=== PATIENT | male | born 1985 | race Hispanic/Latino ===

== ENCOUNTER 2016-08-25 08:55 | Inpatient (IN) | payer MEDICAID, OTHER ==
[2016-08-25 10:04] LABS: BASO % 0.2 % (0.0-2.0); EOS % 0.3 % (0.0-4.0); HEMATOCRIT 38.8 % (35.0-51.0); LYMPH # 0.6 K/uL (1.0-4.3); LYMPH % 7.8 % (20.0-40.0); MEAN CELL VOLUME 91.9 fL (80.0-94.0); MEAN CORPUSCULAR HEMOGLOBIN 30.5 pg (27.0-31.0); MEAN CORPUSCULAR HGB CONC 33.2 g/dL (33.0-37.0); MEAN PLATELET VOLUME 9.5 fL (7.2-11.7); MONO # 0.4 K/uL (0.0-0.8); PLATELET COUNT 165 K/uL (130-400); RED CELL DISTRIBUTION WIDTH 12.7 % (11.5-14.5); WHITE BLOOD COUNT 7.5 K/uL (4.8-10.8)
[2016-08-25 10:24] LABS: CHLORIDE 100 mmol/L (98-107); SODIUM 140 mmol/L (132-148)
[2016-08-25 10:25] LABS: POTASSIUM 3.6 mmol/L (3.6-5.2)
[2016-08-25 10:27] LABS: ALB/GLOB RATIO 1.2 (1.0-2.1); ALKALINE PHOSPHATASE 113 U/L (38-126); ALT/SGPT 99 U/L (21-72); AST/SGOT 102 U/L (17-59); BILIRUBIN,TOTAL 1.4 mg/dL (0.2-1.3); BLOOD UREA NITROGEN 10 mg/dL (9-20); CALCIUM 8.4 mg/dl (8.6-10.4); CARBON DIOXIDE 27 mmol/L (22-30); GFR AFRICAN-AMERICAN > 60; GLUCOSE,RANDOM 121 mg/dL (75-110); TOTAL PROTEIN 7.2 g/dL (6.3-8.3)
[2016-08-25 10:28] LABS: ALCOHOL SERUM < 10 mg/dl (0-10)
[2016-08-25 10:29] LABS: NEUTROPHIL 86 % (50-75); TOTAL CELLS COUNTED 100
[2016-08-25 10:32] LABS: RBC URINE 4 /hpf (0-3); URINE BACTERIA RARE (<OCC); URINE BILIRUBIN NEGATIVE (NEGATIVE); URINE BLOOD NEGATIVE (NEGATIVE); URINE COLOR Yellow (YELLOW); URINE GLUCOSE (UA) NORMAL (Normal); URINE KETONE NEGATIVE (NEGATIVE); URINE LEUKOCYTE ESTERASE 1+ Leu/uL (Negative); URINE PROTEIN NEGATIVE (NEGATIVE); WBC URINE 23 /hpf (0-5)
--- NOTE | 2016-08-25 11:34 | C.PDOC ---
History Of Present Illness 30 y/o male with history of heroin abuse and alcohol abuse presents to the ED requesting detox. He also reports history of depression and suicidal thoughts in the past but states that today he is just here for detox. Patient also complains of feeling anxious and notes he has not been able to sleep well. Admits to some nausea and vomiting but denies fever, chest pain, suicidal ideation at this time, homicidal ideation, or other complaints. Time Seen by Provider: 08/25/16 09:13 Chief Complaint (Nursing): Substance Abuse History Per: Patient History/Exam Limitations: no limitations Onset/Duration Of Symptoms: Days, Persistent Current Symptoms Are (Timing): Still Present Suicide/Self Injury Attempted (Context): None Modifying Factor(s): Alcohol, Other (heroin) Associated Symptoms: Anxiety, Depression Involuntary Hold By: None Recent travel outside of the [place]: No Past Medical History Reviewed: Historical Data, Nursing Documentation, Vital Signs Vital Signs: Last Vital Signs Temp 97.8 F 08/25/16 12:23 Pulse 68 08/25/16 12:23 Resp 97 H 08/25/16 12:23 BP 136/78 08/25/16 12:23 Pulse Ox 18 L 08/25/16 12:23 - Medical History PMH: Migraine Surgical History: No Surg Hx Family History: States: Unknown Family Hx - Social History Hx Tobacco Use: Yes (heavy smoker) Hx Alcohol Use: Yes Hx Substance Use: Yes - Immunization History Hx Tetanus Toxoid Vaccination: No Hx Influenza Vaccination: No Hx Pneumococcal Vaccination: No Review Of Systems Constitutional: Positive for: Other (requesting detox). Negative for: Fever Cardiovascular: Negative for: Chest Pain Gastrointestinal: Positive for: Nausea, Vomiting Psych: Positive for: Anxiety, Depression. Negative for: Suicidal ideation (or homicidal ideation) Physical Exam - Physical Exam Appears: Non-toxic, Agitated, Other (anxious) Skin: Warm, Dry Head: Atraumatic, Normacephalic Eye(s): bilateral: Normal Inspection, PERRL, EOMI Nose: Normal Oral Mucosa: Moist Neck: Normal ROM, Supple Chest: Symmetrical Cardiovascular: Rhythm Regular Respiratory: Normal Breath Sounds, No Rales, No Rhonchi, No Wheezing Gastrointestinal/Abdominal: Bowel Sounds, Soft, No Tenderness, No Guarding, No Rebound Back: Normal Inspection, No CVA Tenderness Extremity: Normal ROM, No Swelling Neurological/Psych: Oriented x3, Normal Speech Gait: Steady ED Course And Treatment - Laboratory Results Result Diagrams: 08/25/16 09:54 08/25/16 09:54 Lab Interpretation: No Acute Changes O2 Sat by Pulse Oximetry: 98 (room air) Pulse Ox Interpretation: Normal Medical Decision Making Medical Decision Making: Impression: hx of alcohol abuse and heroin abuse, requesting detox. Plan: * Blood Work * Urinalysis * Ativan PO, Zofran PO There are no detox beds available at this time. Patient evaluated by crisis team, recommend admission to psych for bipolar disorder. Patient has been medically cleared, and will be admitted under the care of Dr. Ascencio. Disposition - Disposition Disposition: HOSPITALIZED Disposition Time: 12:00 Condition: FAIR - POA Present On Arrival: None - Clinical Impression Clinical Impression: Drug abuse, Bipolar disorder - PA / LEGAL ENTITY CONTROLLER / Resident Statement MD/DO has reviewed & agrees with the documentation as recorded. - Scribe Statement The provider has reviewed the documentation as recorded by the Scribe (Tran Kent) All medical record entries made by the Scribe were at my direction and personally dictated by me. I have reviewed the chart and agree that the record accurately reflects my personal performance of the history, physical exam, medical decision making, and the department course for this patient. I have also personally directed, reviewed, and agree with the discharge instructions and disposition. Decision To Admit - Pt Status Changed To: Hospital Disposition Of: Inpatient - Admit Certification Admit to Inpatient:: After my assessment, the patient will require hospitalization for at least two midnights. This is because of the severity of symptoms shown, intensity of services needed, and/or the medical risk in this patient being treated as an outpatient. - InPatient: Physician Admission Certification: I certify that this patient requires 2 or more midnights of care for the following reason:: Patient with bipolar disorder and reports suicidal thoughts, also drug abuse - . Bed Request Type: Psychiatry Admitting Physician: Tiffany Ascencio Patient Diagnosis: Drug abuse, Bipolar disorder
[2016-08-25] MEDS ORDERED: guaiFENesin DM 200 mg-20 mg/10 ml UD PO PRN (12:52)
[2016-08-25] MEDS ORDERED: Aluminum Hydroxide/Magnesium Hydroxide Susp (30 mL) PO PRN (12:52)
--- NOTE | 2016-08-25 12:52 | PCM.PSYCH ---
Initial Psychiatric Evaluation - Initial Psychiatric Evaluation Type of Admission: Voluntary Legal Status: Capacity Chief Complaint (in patient's own words): "I'm in withdrawal" History of Present Illness and Precipitating Events: Pt is a 30 yo male, single, lives in a long-term, and is unemployed. Pt came to the hospital stating "I cant handle it anymore" and requesting opioid and alcohol detox. Pt has a history of heroin abuse. Reports using 10 bags per day, IV. Also reports drinking 1.5 pints of liquor per day. Pt's last drink was yesterday. Reports prior detox and rehab one year ago. Pt complaining of withdrawal symptoms including back pain, nausea, vomiting, and diarrhea. Denies shakes and seizure. At the time of exam, pt reports depressed mood, poor sleep, poor appetite and anhidonia. However he denies any homicidal ideation, auditory hallucinations, and visual hallucinations. Psych Hx: Reports previous episodes of depression and suicidal ideation. Family Psych Hx: denies Past Psychiatric History - Past Psychiatric History Previous Treatment History: Inpatient Pertinent Medical Hx (Current Medical&Sleep Prob, Allergies): Allergies Allergy/AdvReac Type Severity Reaction Status Date / Time No Known Allergies Allergy Verified 05/21/13 14:55 No Known Home Med 08/25/16 Review of Systems - Review of Systems All systems: reviewed and no additional remarkable complaints except - Psychiatric Psychiatric: Anxiety, Depression, Irritability, Suicidal Ideation Mental Status Examination - Personal Presentation Personal Presentation: Looks stated age - Affect Affect: Constricted, Depressed - Motor Activity Motor Activity: Calm - Reliability in Providing Information Reliability in Providing Information: Good - Speech Speech: Organized - Mood Mood: Depressed, Anxious - Formal Thought Process Formal Thought Process: No Impairment - Obsessions/Compulsions Obsessions: No Compulsions: No - Cognitive Functions Orientation: Person, Place, Situation, Time Sensorium: Alert Attention/Concentration: Attentive Abstract Thinking: [place] Estimate of Intelligence: Below average Judgement: Imparied, as evidence by: Poor judgement, Imparied, as evidence by: Lack of insight into illness - Risk Risk: Suicidal, Withdrawal, Diminished functioning - Strength & Assets Inventory Strength & Assets Inventory: Cooperative DSM 5 DX - DSM 5 DSM 5 Diagnosis: Major depressive disorder recurrent moderate CBT Psychoeducation Supportive therapy, individual therapy Start Zoloft 50 mg PO daily Start Trazodone 50 mg PO Q HS Opioid use disorder severe CBT Psychoeducation Supportive therapy, individual therapy Use [place] for abstinence Opioid withdrawal CBT Psychoeducation Supportive therapy, individual therapy Clonidine when necessary Methadone taper Alcohol use disorder severe CBT Psychoeducation Supportive therapy, individual therapy Use [place] for abstinence Alcohol withdrawal uncomplicated CBT Psychoeducation Supportive therapy, individual therapy Librium when necessary Start Librium taper Start folic acid/thiamine/multivitamin - Recommended/Plan of Treatment Treatment Recommendations and Plan of Treatment: Major depressive disorder recurrent moderate CBT Psychoeducation Supportive therapy, individual therapy Zoloft 50 mg PO daily Trazodone 50 mg PO Q HS Opioid use disorder severe CBT Psychoeducation Supportive therapy, individual therapy Use [place] for abstinence Opioid withdrawal CBT Psychoeducation Supportive therapy, individual therapy Clonidine when necessary Methadone taper Alcohol use disorder severe CBT Psychoeducation Supportive therapy, individual therapy Use CO for abstinence Alcohol withdrawal uncomplicated CBT Psychoeducation Supportive therapy, individual therapy Ativan when necessary Ativan taper Folic acid/thiamine/multivitamin
[2016-08-25] MEDS: Multiple Vitamins Tab PO SCH (15:14)
[2016-08-26] MEDS: Multiple Vitamins Tab PO SCH (10:09)
--- NOTE | 2016-08-26 16:58 | PCM.PYCHPN ---
Psychiatric Progress Note - Psychiatric Progress Note Patient seen today, length of contact: 16 minutes Patient Chief Complaint: "This akathisia is driving me nuts" Problems Identified/Issues Discussed: Pt was seen, chart reviewed and case discussed with staff. Pt is compliant with medication. Noted to be withdrawn in his room since admission. Pt complaining of continued poor sleep, bodyaches, decreased appetite and restlessness. Denies suicidal ideation, homicidal ideation, and hallucinations. Pt slightly improved from yesterday. Psychoeducation and support given. Medication Change: Yes (Methadone) Medical Record Reviewed: Yes Mental Status Examination - Cognitive Function Orientation: Person, Place, Situation, Time - Mood Mood: Depressed, Anxious - Affect Affect: Constricted, Depressed - Formal Thought Process Formal Thought Process: No Impairment - Suicidal Ideation Suicidal Ideation: No - Homicidal Ideation Homicidal Ideation: No Goal/Treatment Plan - Goal/Treatment Plan Need for Continued Stay: Remain at risks for inpatient hospitalization, Discharge may exacerbated symptoms, Severe functional impairment Progress Toward Problem(s) and Goals/Treatment Plan: Major depressive disorder recurrent moderate CBT Psychoeducation Supportive therapy, individual therapy Zoloft 50 mg PO daily Trazodone 50 mg PO Q HS Opioid use disorder severe CBT Psychoeducation Supportive therapy, individual therapy Use [place] for abstinence Opioid withdrawal CBT Psychoeducation Supportive therapy, individual therapy Clonidine when necessary Methadone taper Alcohol use disorder severe CBT Psychoeducation Supportive therapy, individual therapy Use [place] for abstinence Alcohol withdrawal uncomplicated CBT Psychoeducation Supportive therapy, individual therapy Ativan when necessary Ativan taper Folic acid/thiamine/multivitamin
[2016-08-27] MEDS: Multiple Vitamins Tab PO SCH (10:37)
--- NOTE | 2016-08-27 16:26 | PCM.PYCHPN ---
Psychiatric Progress Note - Psychiatric Progress Note Patient seen today, length of contact: 20 min Patient Chief Complaint: "I don't feel good" Problems Identified/Issues Discussed: The pt is seen, chart reviewed, case discussed. Pt complains of back pain. Pt had trouble sleeping due to twitching in back. Pt stated Ativan improved his symptoms. Pt plan is to enter methadone program, but is unsure where. Pt will be referred to a program. Aftercare discussed, support and psychoeducation given. Medication Change: Yes (Methadone and Lorazepam taper, Seroquel ) Medical Record Reviewed: Yes Mental Status Examination - Cognitive Function Orientation: Person, Place, Situation, Time Memory: Intact Attention: WNL Concentration: WNL Association: WNL Fund of Knowledge: WNL - Mood Mood: Depressed, Anxious - Affect Affect: Constricted - Speech Speech: Appropriate - Formal Thought Process Formal Thought Process: No Impairment - Suicidal Ideation Suicidal Ideation: No - Homicidal Ideation Homicidal Ideation: No Goal/Treatment Plan - Goal/Treatment Plan Need for Continued Stay: Remain at risks for inpatient hospitalization, Discharge may exacerbated symptoms, Severe functional impairment Progress Toward Problem(s) and Goals/Treatment Plan: Major depressive disorder recurrent moderate CBT Psychoeducation Supportive therapy, individual therapy Trazodone 50 mg PO HS PRN Opioid use disorder severe CBT Psychoeducation Supportive therapy, individual therapy Use [place] for abstinence Opioid withdrawal CBT Psychoeducation Supportive therapy, individual therapy Clonidine when necessary Methadone taper Alcohol use disorder severe CBT Psychoeducation Supportive therapy, individual therapy Use NC for abstinence Alcohol withdrawal uncomplicated CBT Psychoeducation Supportive therapy, individual therapy Ativan when necessary Ativan taper Folic acid/thiamine/multivitamin Estimated Date of D/C: 09/01/16 - Smoking Cessation Smoking Cessation Initiated: Yes
[2016-08-28 08:40] VITALS: RESP 18
[2016-08-28] MEDS: Multiple Vitamins Tab PO SCH (09:52)
--- NOTE | 2016-08-28 12:52 | PCM.PYCHPN ---
Psychiatric Progress Note - Psychiatric Progress Note Patient seen today, length of contact: 16 minutes Patient Chief Complaint: "I'm feeling better" Problems Identified/Issues Discussed: Patient seen and evaluated, chart reviewed and discussed with the nurse. Supportive therapy and psychoeducation were given. Patient reports improvement in his mood and improvement in the withdrawal symptoms. Patient reports irritable mood but denies any suicidal ideation or homicidal ideation. He is tolerating the withdrawal medications and denies any side effects. Medication Change: Yes (Methadone taper, start remeron) Medical Record Reviewed: Yes Mental Status Examination - Cognitive Function Orientation: Person, Place, Situation, Time Memory: Intact Attention: WNL Concentration: Poor Association: WNL Fund of Knowledge: Poor - Mood Mood: Depressed, Anxious - Affect Affect: Constricted, Depressed - Speech Speech: Appropriate - Formal Thought Process Formal Thought Process: No Impairment - Suicidal Ideation Suicidal Ideation: No - Homicidal Ideation Homicidal Ideation: No Goal/Treatment Plan - Goal/Treatment Plan Need for Continued Stay: Remain at risks for inpatient hospitalization, Discharge may exacerbated symptoms, Severe functional impairment Progress Toward Problem(s) and Goals/Treatment Plan: Major depressive disorder recurrent moderate CBT Psychoeducation Supportive therapy, individual therapy Zoloft 50 mg PO daily Trazodone 50 mg PO Q HS Opioid use disorder severe CBT Psychoeducation Supportive therapy, individual therapy Use [place] for abstinence Opioid withdrawal CBT Psychoeducation Supportive therapy, individual therapy Clonidine when necessary Methadone taper Alcohol use disorder severe CBT Psychoeducation Supportive therapy, individual therapy Use [place] for abstinence Alcohol withdrawal uncomplicated CBT Psychoeducation Supportive therapy, individual therapy Ativan when necessary Ativan taper Folic acid/thiamine/multivitamin Estimated Date of D/C: 09/01/16 - Smoking Cessation Smoking Cessation Initiated: Yes
[2016-08-29 07:38] VITALS: BP 105/70; PULSE 84; TEMP 98.4; O2SAT 99
[2016-08-29] MEDS: Multiple Vitamins Tab PO SCH (09:18)
--- NOTE | 2016-08-29 10:39 | PCM.PYCHDC ---
Mental Status Examination - Mental Status Examination Orientation: Person, Place, Situation, Time Memory: Intact Mood: Neutral Affect: Constricted Speech: Soft Attention: WNL Concentration: WNL Association: WNL Fund of Knowledge: WNL Formal Thought Process: No Impairment Description of patient's judgement and insight: good, fair Psychotic Thoughts and Behaviors: denies any AVH Suicidal Ideation: No Current Homicidal Ideation?: No Discharge Summary - Discharge Note Reason for Hospitalization: Pt is a 30 yo male, single, lives in a jail, and is unemployed. Pt came to the hospital stating "I cant handle it anymore" and requesting opioid and alcohol detox. Pt has a history of heroin abuse. Reports using 10 bags per day, IV. Also reports drinking 1.5 pints of liquor per day. Pt's last drink was yesterday. Reports prior detox and rehab one year ago. Pt complaining of withdrawal symptoms including back pain, nausea, vomiting, and diarrhea. Denies shakes and seizure. At the time of exam, pt reports depressed mood, poor sleep, poor appetite and anhidonia. However he denies any homicidal ideation, auditory hallucinations, and visual hallucinations. Psych Hx: Reports previous episodes of depression and suicidal ideation. Family Psych Hx: denies Consultations:: List each consultation separately and include: 1. Reason for request. 2. Findings. 3. Follow-up Summary of Hospital Course include:: 1. Description of specific treatment plan utilized for patients during their course of treatmen. 2. Summarize the time- course for resolution of acute symptoms and/or regressed behaviors. 3. Describe issues identified and worked on during hospitalization. 4. Describe medication utilized. 5. Describe medical problems identified and treated. 6. Reassessment of suicide risk Summary of Hospital Course: During the course of his stay, patient (pt) started progressively improving and he no longer remained irritable, depressed, and suicidal. His mood was improved and he started attending groups and meetings and started socializing. Patient denied any feelings of hopelessness, helplessness, and worthlessness, denied any problem with the sleep or appetite, denied suicidal ideation or homicidal ideation. Pt denied any auditory or visual hallucinations. Some changes were made in his current medications and patient was discharged on following medications. He tolerated these medications very well and denied any side effects. - Final Diagnosis (DSM 5) Condition upon Discharge: FAIR DSM 5: Major depressive disorder recurrent moderate Opioid use disorder severe Opioid withdrawal Alcohol use disorder severe Alcohol withdrawal uncomplicated Disposition: HOME/ ROUTINE Follow-up Treatment Plan: Education: Pt was educated and counseled about the risks and benefits of taking and not taking medications. Pt was educated and counseled about the risks of drinking and abusing drugs. Pt was educated and counseled to go to the ER or call 911 if pt develop suicidal ideation or homicidal ideation, worsening of symptoms or severe side effects of the meds. Prescriptions/Medication Reconciliation: Mirtazapine [Remeron] 30 mg PO HS #30 tab QUEtiapine [Seroquel] 200 mg PO HS #30 tab - Smoking Cessation Smoking Cessation Medication prescribed: No - Antipsychotic Medications Pt discharged on 2 or more routine antipsychotic medications: No
== END 2016-08-29 12:21 | disposition home or self-care (01) | DRG 744 ==
LOC: C.ER 08:55 → C.5E 12:00
PROVIDERS: ADMIT Psychiatry & Neurology Psychiatry; ATTEND Psychiatry & Neurology Psychiatry
PROC: HZ2ZZZZ Detoxification Services for Substance Abuse Treatment (ICD-10-PCS; principal; 2016-08-25)
PROC: HZ36ZZZ Individual Counseling for Substance Abuse Treatment, Psychoeducation (ICD-10-PCS; 2016-08-25)
PROC: HZ32ZZZ Individual Counseling for Substance Abuse Treatment, Cognitive-Behavioral (ICD-10-PCS; 2016-08-25)
PROC: HZ59ZZZ Individual Psychotherapy for Substance Abuse Treatment, Supportive (ICD-10-PCS; 2016-08-25)
DX: F11.23 Opioid dependence with withdrawal (principal); F33.1 Major depressive disorder, recurrent, moderate; F10.230 Alcohol dependence with withdrawal, uncomplicated; F17.210 Nicotine dependence, cigarettes, uncomplicated; Y90.0 Blood alcohol level of less than 20 mg/100 ml

== ENCOUNTER 2016-11-05 07:21 | Emergency (ER) | payer MEDICAID ==
[2016-11-05 07:32] VITALS: RESP 18
--- NOTE | 2016-11-05 08:22 | C.PDOC ---
History Of Present Illness 30 y/o male presents to ED requesting detox for alcohol. Denies any other complaints on arrival. Denies suicidal ideation or homicidal ideation. Time Seen by Provider: 11/05/16 07:39 Chief Complaint (Nursing): Substance Abuse History Per: Patient History/Exam Limitations: no limitations Onset/Duration Of Symptoms: Days Current Symptoms Are (Timing): Still Present Modifying Factor(s): Alcohol Associated Symptoms: denies: Depression, Suicidal Thoughts, Suicidal Plan Recent travel outside of the [place]: No Past Medical History Reviewed: Historical Data, Nursing Documentation, Vital Signs Vital Signs: Last Vital Signs Temp 98.3 F 11/05/16 08:27 Pulse 78 11/05/16 08:27 Resp 18 11/05/16 08:27 BP 148/90 11/05/16 08:27 Pulse Ox 98 11/05/16 08:44 - Medical History PMH: Anxiety, Bipolar Disorder, Depression, Migraine - [facility] Procedures DETOXIFICATION SERVICES FOR SUBSTANCE ABUSE TREATMENT (08/25/16) INDIV JAVA DEVELOPMENT TEAM LEAD FOR SUBSTANCE ABUSE TREATMENT, PSYCHOEDUCATION (08/25/16) INDIV JAVA DEVELOPMENT TEAM LEAD FOR SUBSTANCE ABUSE, COGNITIVE BEHAVIORAL (08/25/16) INDIV PSYCHOTHERAPY FOR SUBSTANCE ABUSE TREATMENT, SUPPORT (08/25/16) Family History: States: Unknown Family Hx - Social History Hx Tobacco Use: Yes (heavy smoker) Hx Alcohol Use: Yes Hx Substance Use: Yes - Immunization History Hx Tetanus Toxoid Vaccination: No Hx Influenza Vaccination: No Hx Pneumococcal Vaccination: No Review Of Systems Except As Marked, All Systems Reviewed And Found Negative. Constitutional: Negative for: Fever Cardiovascular: Negative for: Chest Pain Respiratory: Negative for: Cough, Shortness of Breath, Wheezing Gastrointestinal: Negative for: Nausea, Vomiting Skin: Negative for: Rash Neurological: Negative for: Headache Psych: Negative for: Withdrawal Physical Exam - Physical Exam Appears: Non-toxic, No Acute Distress Skin: Normal Color, Warm, Dry Head: Atraumatic, Normacephalic Eye(s): bilateral: Normal Inspection Neck: Normal ROM Chest: Symmetrical Cardiovascular: Rhythm Regular Respiratory: Normal Breath Sounds, No Rales, No Rhonchi, No Wheezing Extremity: Bilateral: Atraumatic, Normal Color And Temperature, Normal ROM Neurological/Psych: Oriented x3, Normal Speech Gait: Steady ED Course And Treatment O2 Sat by Pulse Oximetry: 98 (RA) Pulse Ox Interpretation: Normal Medical Decision Making Medical Decision Making: Pt evaluated by Crisis. Advised no detox beds available at this time. Instructed to follow up outpatient. Disposition Counseled Patient/Family Regarding: Need For Followup - Disposition Disposition: HOME/ ROUTINE Disposition Time: 08:21 Condition: STABLE Additional Instructions: Follow up with the clinic in 2-5 days for further evaluation. Return to the emergency department at any time if symptoms persist or worsen. Instructions: Anxiety (ED) - POA Present On Arrival: None - Clinical Impression Clinical Impression: Alcohol abuse, Anxiety disorder - PA / MECHANICAL MANUFACTURING ENGINEER / Resident Statement MD/DO has reviewed & agrees with the documentation as recorded. - Scribe Statement The provider has reviewed the documentation as recorded by the Akbaribe Silvestre John All medical record entries made by the Stas were at my direction and personally dictated by me. I have reviewed the chart and agree that the record accurately reflects my personal performance of the history, physical exam, medical decision making, and the department course for this patient. I have also personally directed, reviewed, and agree with the discharge instructions and disposition.
[2016-11-05 08:28] VITALS: BP 148/90; PULSE 78; TEMP 98.3
[2016-11-05 08:44] VITALS: O2SAT 98
== END 2016-11-05 08:28 | disposition home or self-care (01) ==
LOC: C.ER 07:21
DX: F41.9 Anxiety disorder, unspecified (principal); F10.10 Alcohol abuse, uncomplicated

== ENCOUNTER 2017-02-08 23:40 | Inpatient (IN) | payer MEDICAID ==
[2017-02-09] MEDS ORDERED: Sucralfate 1 gm/10 ml Oral Susp UD PO STA (00:44)
[2017-02-09] MEDS ORDERED: Sucralfate 1 gm/10 ml Oral Susp UD ONE (01:04)
--- NOTE | 2017-02-09 01:05 | C.PDOC ---
History Of Present Illness 31 year old male with history of chronic alcoholism presents to the ED with complaints of abdominal pain. He admits to drinking earlier today and denies any nausea, vomiting, fever, or chills. Chief Complaint (Nursing): Abdominal Pain History Per: Patient History/Exam Limitations: no limitations Onset/Duration Of Symptoms: Persistent Current Symptoms Are (Timing): Still Present Location Of Pain/Discomfort: Diffuse Radiation Of Pain To:: None Quality Of Discomfort: "Pain" Associated Symptoms: denies: Fever, Chills, Nausea, Vomiting, Diarrhea Exacerbating Factors: None Alleviating Factors: None Recent travel outside of the [place]: No Additional History Per: Prior Records Past Medical History Reviewed: Historical Data, Nursing Documentation, Vital Signs Vital Signs: Last Vital Signs Temp 97.1 F L 02/09/17 03:30 Pulse 73 02/09/17 03:30 Resp 20 02/09/17 03:30 BP 127/68 02/09/17 05:09 Pulse Ox 98 02/09/17 06:56 - Medical History PMH: Anxiety, Bipolar Disorder, Depression, Migraine, Schizophrenia - [facility] Procedures DETOXIFICATION SERVICES FOR SUBSTANCE ABUSE TREATMENT (12/02/16) EXCISION OF RIGHT FOOT SKIN, EXTERNAL APPROACH (12/02/16) GROUP INSURANCE APPLICATION INVESTIGATOR FOR SUBSTANCE ABUSE TREATMENT, PSYCHOEDUCATION (12/02/16) GROUP INSURANCE APPLICATION INVESTIGATOR FOR SUBSTANCE ABUSE, COGNITIVE BEHAVIORAL (12/02/16) INDIV INSURANCE APPLICATION INVESTIGATOR FOR SUBSTANCE ABUSE TREATMENT, PSYCHOEDUCATION (08/25/16) INDIV INSURANCE APPLICATION INVESTIGATOR FOR SUBSTANCE ABUSE, COGNITIVE BEHAVIORAL (08/25/16) INDIV PSYCHOTHERAPY FOR SUBSTANCE ABUSE TREATMENT, SUPPORT (12/02/16) INDIV PSYCHOTHERAPY FOR SUBSTANCE ABUSE, COGNITIV BEHAVIORAL (12/02/16) INDIV PSYCHOTHERAPY FOR SUBSTANCE ABUSE, PSYCHOEDUCATION (12/02/16) Family History: States: Unknown Family Hx - Social History Hx Tobacco Use: Yes (heavy smoker) Hx Alcohol Use: Yes Hx Substance Use: Yes (100MG METHADONE DAILY) - Immunization History Hx Tetanus Toxoid Vaccination: No Hx Influenza Vaccination: No Hx Pneumococcal Vaccination: No Review Of Systems Constitutional: Negative for: Fever, Chills Cardiovascular: Negative for: Chest Pain, Palpitations Respiratory: Negative for: Cough, Shortness of Breath Gastrointestinal: Positive for: Abdominal Pain. Negative for: Nausea, Vomiting , Diarrhea Physical Exam - Physical Exam Appears: Non-toxic, No Acute Distress (patient is resting comfortably ) Skin: Warm, Dry Head: Atraumatic, Normacephalic Eye(s): bilateral: Normal Inspection, PERRL, EOMI Oral Mucosa: Moist Neck: Supple Chest: Symmetrical, No Deformity Cardiovascular: Rhythm Regular, No Murmur Respiratory: Normal Breath Sounds, No Rales, No Rhonchi, No Wheezing Gastrointestinal/Abdominal: Soft, Tenderness (mild epigastric tenderness ), No Distention, No Guarding, No Rebound Extremity: Normal ROM, No Tenderness Neurological/Psych: Oriented x3 ED Course And Treatment - Laboratory Results Result Diagrams: 02/09/17 01:03 02/09/17 01:03 O2 Sat by Pulse Oximetry: 98 (RA) Progress Note: Labs and blood work were ordered, patient was given pepcid and sucralfate. Disposition - Disposition Disposition Time: 07:00 Condition: STABLE Forms: [facility] ([facility]) - Clinical Impression Clinical Impression: Alcohol abuse - Scribe Statement The provider has reviewed the documentation as recorded by the Scribsteffen Moreland All medical record entries made by the Scribe were at my direction and personally dictated by me. I have reviewed the chart and agree that the record accurately reflects my personal performance of the history, physical exam, medical decision making, and the department course for this patient. I have also personally directed, reviewed, and agree with the discharge instructions and disposition.
[2017-02-09 01:06] LABS: BASO % 0.3 % (0.0-2.0); EOS % 0.2 % (0.0-4.0); LYMPH # 1.2 K/uL (1.0-4.3); LYMPH % 14.9 % (20.0-40.0); MEAN CELL VOLUME 93.6 fL (80.0-94.0); MEAN CORPUSCULAR HEMOGLOBIN 32.1 pg (27.0-31.0); MEAN CORPUSCULAR HGB CONC 34.3 g/dL (33.0-37.0); MEAN PLATELET VOLUME 8.9 fL (7.2-11.7); MONO # 0.5 K/uL (0.0-0.8); MONO % 5.8 % (0.0-10.0); RED CELL DISTRIBUTION WIDTH 13.8 % (11.5-14.5); WHITE BLOOD COUNT 7.8 K/uL (4.8-10.8)
[2017-02-09 01:14] LABS: CHLORIDE 92 mmol/L (98-107); SODIUM 135 mmol/L (132-148)
[2017-02-09 01:15] LABS: POTASSIUM 4.1 mmol/L (3.6-5.2)
[2017-02-09 01:16] LABS: GFR AFRICAN-AMERICAN > 60
[2017-02-09 01:17] LABS: ALB/GLOB RATIO 1.2 (1.0-2.1); ALKALINE PHOSPHATASE 97 U/L (38-126); ALT/SGPT 126 U/L (21-72); AST/SGOT 162 U/L (17-59); BLOOD UREA NITROGEN 11 mg/dL (9-20); CARBON DIOXIDE 24 mmol/L (22-30); GLUCOSE,RANDOM 79 mg/dL (75-110); TOTAL PROTEIN 8.8 g/dL (6.3-8.3)
[2017-02-09 01:18] LABS: ALCOHOL SERUM 234 mg/dl (0-10); CALCIUM 8.4 mg/dl (8.6-10.4)
[2017-02-09 01:19] LABS: RBC URINE 6 /hpf (0-3); URINE BILIRUBIN NEGATIVE (NEGATIVE); URINE BLOOD NEGATIVE (NEGATIVE); URINE COLOR Amber (YELLOW); URINE GLUCOSE (UA) NORMAL (Normal); URINE KETONE TRACE mg/dL (NEGATIVE); URINE LEUKOCYTE ESTERASE NEG Leu/uL (Negative); URINE PROTEIN 2+ mg/dL (NEGATIVE); WBC URINE 5 /hpf (0-5)
--- NOTE | 2017-02-09 10:37 | PCM.BM ---
Treatment Plan Problems - Problems identified on initial assessmt potential for alcohol withdrawal Date Initiated: 02/09/17 Assessment reference: NA Status: Active Treatment assets and liabiliti Patient Assests: adapts well, cooperative, insightful, self-reliant, ADL independent, negotiates basic needs, cognitively intact Patient Liabilities: substance abuse - Milieu Protocol Maintain good personal hygiene: daily Encourage regular showers, daily Remind patient to perform daily oral care, daily Assist patient to perform ADL's Conduct patient checks and document Observation sheet: Q15 minutes Maintain personal safety: every shift Educate patient to report safety concerns to staff, every shift Monitor environment for contraband/sharps Medication safety: Monitor for expected outcome, potential side effects: every shift, Assess barriers to learning: every shift, Assess readiness for medication education: every shift
[2017-02-09] MEDS: Multiple Vitamins Tab PO SCH (12:38)
[2017-02-09] MEDS: Pantoprazole 20 mg EC Tab PO SCH (13:09)
[2017-02-09] MEDS: Methadone 40 mg Tab PO SCH (13:09)
--- NOTE | 2017-02-09 15:22 | PCM.PSYCH ---
Initial Psychiatric Evaluation - Initial Psychiatric Evaluation Type of Admission: Voluntary Legal Status: Capacity Chief Complaint (in patient's own words): "I relapsed" History of Present Illness and Precipitating Events: The pt is seen, chart reviewed and case discussed. He is known from recent admissions. This is his 4th admission to , 2nd to detox. All with alcohol-related issues. He is a 31 yo WM, single, homeless and unemployed. stays with "friends" along with is GF. He goes to a methadone program and is on 110 mg/d (confirmed by our RN, Brenna) . [facility] in [facility] He is here for alcohol detox; drinking 1-2 pints (again). He has wdw sxs and was medicated in ED He used to use 10 bags of heroin in the past, now clean He denies other drug use but occasional MJ. Smokes 1/2 ppd cig. He has been to detox before and psych with substance-induced depression Currently he denies feeling suicidal or other manic/psychotic sxs Past psych hx: Depression, admitted to psych. No torri attempts Family psych: drug use Med hx: Migraines Current Medications: Active Medications Generic Name Dose Route Start Last Admin Trade Name Freq PRN Reason Stop Dose Admin Chlordiazepoxide 50 mg 02/09/17 10:30 Librium PO DAILY PRN TREMORS Clonidine HCl 0.1 mg 02/09/17 11:28 Catapres PO Q4H PRN Symptoms of alcohol withdrawl Folic Acid 1 mg 02/09/17 11:30 02/09/17 12:38 Folic Acid PO Not Given DAILY JULIO CÉSAR Lorazepam 1 mg 02/09/17 11:02 02/09/17 11:27 Ativan PO 1 mg Q4 PRN Administration withdrawal symptoms Lorazepam 2 mg 02/09/17 13:00 02/09/17 14:15 Ativan PO 02/14/17 12:59 2 mg Q6H JULIO CÉSAR Administration Taper Methadone HCl 80 mg 02/09/17 12:45 02/09/17 13:09 Methadose PO 80 mg DAILY JULIO CÉSAR Administration Methadone HCl 30 mg 02/09/17 12:45 02/09/17 13:08 Methadone PO 30 mg DAILY JULIO CÉSAR Administration Multivitamins 1 tab 02/09/17 11:30 02/09/17 12:38 Hexavitamin PO Not Given DAILY JULIO CÉSAR Ondansetron HCl 4 mg 02/09/17 10:16 02/09/17 12:54 Zofran Odt PO 4 mg PRN PRN Administration Nausea/Vomiting Ondansetron HCl 4 mg 02/09/17 11:32 Zofran Tab PO Q8 PRN Nausea/Vomiting Pantoprazole Sodium 20 mg 02/09/17 11:45 02/09/17 13:09 Protonix Ec Tab PO 20 mg DAILY JULIO CÉSAR Administration Promethazine HCl 25 mg 02/09/17 11:32 Phenergan Inj IM QID PRN Nausea/Vomiting, Unable PO Thiamine HCl 100 mg 02/09/17 11:30 02/09/17 12:55 Vitamin B1 Tab PO Not Given DAILY JULIO CÉSAR Trazodone HCl 100 mg 02/09/17 22:00 Desyrel PO HS PRN Insomnia Past Psychiatric History - Past Psychiatric History Previous Treatment History: None Pertinent Medical Hx (Current Medical&Sleep Prob, Allergies): Allergies Allergy/AdvReac Type Severity Reaction Status Date / Time No Known Allergies Allergy Verified 05/21/13 14:55 Methadone [Methadone HCl] 100 mg PO DAILY 11/05/16 Review of Systems - Psychiatric Psychiatric: Abnormal Sleep Pattern, Anxiety. absent: Hallucinations, Homicidal Ideation, Suicidal Ideation Mental Status Examination - Personal Presentation Personal Presentation: Looks stated age (unkempt) - Affect Affect: Constricted - Motor Activity Motor Activity: Calm - Reliability in Providing Information Reliability in Providing Information: Good - Speech Speech: Organized - Mood Mood: Anxious - Formal Thought Process Formal Thought Process: No Impairment - Cognitive Functions Orientation: Person, Place, Situation, Time Sensorium: Alert Estimate of Intelligence: Average Judgement: Intact, as evidence by: Insight regarding need for hospitalization Memory: Recent intact, as evidence by: Ability to recall events of the day, Remote intact, as evidenced by: Abilit to recall sig. life events - Risk Risk: Withdrawal, Diminished functioning - Strength & Assets Inventory Strength & Assets Inventory: Cooperative - Limitations Limitations: Living alone, Other DSM 5 DX - DSM 5 DSM 5 Diagnosis: Alcohol withdrawal Alcohol use d/o - severe Opioid use d/o - severe, on maintenance - Recommended/Plan of Treatment Treatment Recommendations and Plan of Treatment: Ativan detox due to elevated LFTs As needed medications Gabapentin for augmentation Attend groups and activities Supportive therapy and psychoeducation NC for abstinence CBT for relapse prevention Encourage MAT for alcohol too, ie topamax, antabuse Refer to rehab or just continue with his MMTP Attend self-help groups as well Opioids: Continue methadone Teach relapse prevention skills 34 min Projected ELOS: 4-5 days Prognosis: good w treatment - Smoking Cessation Smoking Cessation Initiated: Yes
[2017-02-10] MEDS: Multiple Vitamins Tab PO SCH (09:00)
[2017-02-10] MEDS: Methadone 40 mg Tab PO SCH (09:01)
[2017-02-10] MEDS: Pantoprazole 20 mg EC Tab PO SCH (09:02)
--- NOTE | 2017-02-10 09:59 | PCM.PYCHDC ---
Mental Status Examination - Mental Status Examination Orientation: Person, Place, Situation, Time Memory: Intact Mood: Anxious Affect: Broad Speech: Appropriate Attention: WNL Concentration: WNL Association: WNL Fund of Knowledge: WNL Formal Thought Process: No Impairment Suicidal Ideation: No Current Homicidal Ideation?: No Discharge Summary - Discharge Note Reason for Hospitalization: Alcohol Detox Consultations:: List each consultation separately and include: 1. Reason for request. 2. Findings. 3. Follow-up Summary of Hospital Course include:: 1. Description of specific treatment plan utilized for patients during their course of treatmen. 2. Summarize the time- course for resolution of acute symptoms and/or regressed behaviors. 3. Describe issues identified and worked on during hospitalization. 4. Describe medication utilized. 5. Describe medical problems identified and treated. 6. Reassessment of suicide risk Summary of Hospital Course: The pt was admitted and started on treatment with psychotherapy, support, psychoeducation and medications. IA and CBT used. Pt states that the medications given are holding him well. His plan at this time is to stay on his Methadone program and [place] with his . When explained the length of course for treatment patient stated "No I need to leave today to organize all my things and get my housing back and reunite with my ". Pt was encouraged to stay as this was only the beginning of day 2 of his detox and was feeling well due to the medications provided while in detox. Pt refused stating "if I have to sign AMA I will because I can not stay any longer". All the risks and benefits of medications are discussed and the patient understood and agreed. - Final Diagnosis (DSM 5) Condition upon Discharge: FAIR DSM 5: Alcohol withdrawal Alcohol use d/o - severe Opioid use d/o - severe, on maintenance Disposition: AGAINST MEDICAL ADVICE Follow-up Treatment Plan: Follow after care plan as discussed. Use relapse prevention skills Return to ER or call 911 if suicidal, homicidal or symptoms relapse. Stay away from stress, alcohol and drugs. See primary doctor regularly and get labs. - Antipsychotic Medications Pt discharged on 2 or more routine antipsychotic medications: No
[2017-02-10 10:37] VITALS: BP 124/77; PULSE 96; RESP 19; TEMP 98.6; O2SAT 97
== END 2017-02-10 10:25 | disposition left against medical advice (07) | DRG 749 ==
LOC: C.ER 23:40 → C.9E 02-09 08:41 → C.7D 02-09 10:16
PROVIDERS: ADMIT Psychiatry & Neurology Psychiatry; ATTEND Psychiatry & Neurology Psychiatry
PROC: HZ2ZZZZ Detoxification Services for Substance Abuse Treatment (ICD-10-PCS; principal; 2017-02-09)
DX: F10.239 Alcohol dependence with withdrawal, unspecified (principal); F20.9 Schizophrenia, unspecified; F17.210 Nicotine dependence, cigarettes, uncomplicated; F31.9 Bipolar disorder, unspecified; G43.909 Migraine, unspecified, not intractable, without status migrainosus; F41.9 Anxiety disorder, unspecified; Z59.0 Homelessness